=== PATIENT | female | born 1985 | race Caucasian/White ===

== ENCOUNTER 2018-04-18 10:57 | Emergency (ER) | payer OTHER ==
[2018-04-18 12:14] VITALS: BP 117/70
--- NOTE | 2018-04-18 13:02 | UC ---
UC General HPI - HPI Summary HPI Summary: 32 year old female with previous diagnosis of trigeminal neuralgia presents with 2-3 day history of intermittent, sharp, shooting right sided facial pain that lasts for seconds. States similar to her previous episodes except less severe. Treated successfully in past with low dose carbamazepine. Deneis fever, chills, rash, facial droop, ear pain/drainage, URI symptoms, headache, visual disturbances, speech difficulties, extremity weakness, numbness, or tingling. - History of Current Complaint Chief Complaint: UCGeneralIllness Stated Complaint: NERVE PROBLEM IN FACE Time Seen by Provider: 04/18/18 12:41 Hx Obtained From: Patient Hx Last Menstrual Period: 03/31/18 Onset/Duration: Sudden Onset Timing: Intermittent Episodes Lasting: - seconds Current Severity: None Pain Intensity: 4 - Allergy/Home Medications Allergies/Adverse Reactions: Allergies Allergy/AdvReac Type Severity Reaction Status Date / Time No Known Allergies Allergy Verified 04/18/18 12:14 PMH/Surg Hx/FS Hx/Imm Hx Previously Healthy: Yes Other Neurological History: Trigeminal neuralgia Other History Of: Negative For: HIV, Hepatitis B, Hepatitis C, Anticoagulant Therapy - Surgical History Surgical History: Yes Surgery Procedure, Year, and Place: CSECTION X 2 - Family History Family History: Noncontributory - Social History Occupation: Works From/At Home Lives: With Family Alcohol Use: Occasionally Alcohol Amount: few times a week Substance Use Type: None Smoking Status (MU): Never Smoked Tobacco - Immunization History Most Recent Influenza Vaccination: none Most Recent Tetanus Shot: 09/15/15 Most Recent Pneumonia Vaccination: none Review of Systems Constitutional: Negative Skin: Negative Eyes: Negative ENT: Negative Respiratory: Negative Cardiovascular: Negative Neurological: Other - See HPI Is Patient Immunocompromised?: No All Other Systems Reviewed And Are Negative: Yes Physical Exam Triage Information Reviewed: Yes Appearance: Well-Appearing, No Pain Distress, Well-Nourished Vital Signs: Initial Vital Signs Temp 97.9 F 04/18/18 12:10 Pulse 100 04/18/18 12:10 Resp 20 04/18/18 12:10 BP 117/70 04/18/18 12:10 Pulse Ox 100 04/18/18 12:10 Vital Signs Reviewed: Yes Eyes: Positive: Conjunctiva Clear. Negative: Discharge ENT: Positive: Hearing grossly normal, TMs normal, Uvula midline. Negative: Pharyngeal erythema, Nasal congestion, Nasal drainage, Tonsillar swelling, Tonsillar exudate, Sinus tenderness Neck: Positive: Supple, Nontender, No Lymphadenopathy Respiratory: Positive: Lungs clear, Normal breath sounds, No respiratory distress Cardiovascular: Positive: RRR, No Murmur Neurological: Positive: Alert, Other: - Cranial nerves II-XII grossly intact Skin Exam: Normal Course/Dx - Course Course Of Treatment: 32 year old female with previous history of trigeminal neuralgia presents with 2-3 days of brief, intermittent episodes sharp, shooting , right-sided facial pain. Exam unremarkable. Her history is consisent with reoccurence of her trigeminal neuralgia. She has been successfully treated in past with low dose carbamazepine therefore will start her on carbamazepine 100 mg BID. She is to follow up with her PCP in 7 days for re-evaluation. Warning symptoms reviewed. Verbalizes understanding and agrees with POC. - Differential Dx - Multi-Symptom Provider Diagnoses: Trigeminal neuralgia Discharge - Sign-Out/Discharge Documenting (check all that apply): Patient Departure All imaging exams completed and their final reports reviewed: No Studies - Discharge Plan Condition: Stable Disposition: HOME Prescriptions: Carbamazepine [Tegretol] 100 mg PO BID 14 Days #14 tablet Patient Education Materials: Trigeminal Neuralgia (ED) Referrals: Sagar Plaza MD [Primary Care Provider] - 7 Days Additional Instructions: With your history and symptoms I suspect that you are having a reoccurrence of your trigeminal neuralgia. Start carbamazepine 100 mg twice a day. Follow up with your primary care provider within 7 days for reevaluation. Seek immediate medical attention in the emergency room if you develop fever greater than 100.5 F, have worsening or persistent pain, facial droop, visual disturbances, difficulty speaking, numbness, tingling, or weakness of your arms or legs, or any worsening of symptoms. - Billing Disposition and Condition Condition: STABLE Disposition: Home
== END 2018-04-18 13:14 | disposition home or self-care (01) ==
LOC: UCEAST 10:57
DX: G50.0 Trigeminal neuralgia (principal)
CPT/HCPCS: 99211; G0463

== ENCOUNTER 2019-04-12 19:39 | Emergency (ER) | payer OTHER ==
--- NOTE | 2019-04-12 20:27 | UC ---
Respiratory Complaint HPI - HPI Summary HPI Summary: worsening cough and chest congestion over the week--chest feels tight and painfull with cough and deep breaths - History of Current Complaint Chief Complaint: UCRespiratory Stated Complaint: COUGH, CHEST CONGESTION Time Seen by Provider: 04/12/19 20:27 Hx Obtained From: Patient Hx Last Menstrual Period: 01/02/18 ?: No Onset/Duration: Gradual Onset, Lasting Weeks - 1, Still Present Timing: Constant Character: Cough: Nonproductive Aggravating Factors: Exertion, Deep Breaths Alleviating Factors: Nothing Associated Signs And Symptoms: Positive: Pleuritic Chest Pain, URI - Allergies/Home Medications Allergies/Adverse Reactions: Allergies Allergy/AdvReac Type Severity Reaction Status Date / Time No Known Allergies Allergy Verified 04/12/19 20:33 Home Medications: Home Medications guaiFENesin [Mucinex] 1 tab PO ONCE PRN 04/12/19 [History Confirmed 04/12/19] PMH/Surg Hx/FS Hx/Imm Hx Previously Healthy: Yes Other History Of: Negative For: HIV, Hepatitis B, Hepatitis C, Anticoagulant Therapy - Surgical History Surgical History: Yes Surgery Procedure, Year, and Place: x2 - Family History Known Family History: Positive: None, Hypertension Family History: Noncontributory - Social History Occupation: Works From/At Home Lives: With Family Alcohol Use: Weekly Alcohol Amount: few times a week Substance Use Type: None Smoking Status (MU): Never Smoked Tobacco - Immunization History Most Recent Influenza Vaccination: none Most Recent Tetanus Shot: 09/15/15 Most Recent Pneumonia Vaccination: none Review of Systems All Other Systems Reviewed And Are Negative: Yes Constitutional: Positive: Chills, Fatigue Skin: Positive: Negative Eyes: Positive: Negative Respiratory: Positive: Cough Cardiovascular: Positive: Negative Gastrointestinal: Positive: Negative Genitourinary: Positive: Negative Motor: Positive: Negative Neurovascular: Positive: Negative Musculoskeletal: Positive: Negative Neurological: Positive: Negative Psychological: Positive: Negative Is Patient Immunocompromised?: No Physical Exam Triage Information Reviewed: Yes Appearance: No Pain Distress, Well-Nourished, Ill-Appearing - miuld Vital Signs Reviewed: Yes Eye Exam: Normal Eyes: Positive: Conjunctiva Clear ENT Exam: Normal ENT: Positive: Normal ENT inspection, Hearing grossly normal, TMs normal, Uvula midline. Negative: Nasal congestion, Nasal drainage, Trismus, Muffled voice, Hoarse voice Dental Exam: Normal Neck exam: Normal Neck: Positive: Supple, Nontender, No Lymphadenopathy Respiratory Exam: Normal Respiratory: Positive: Chest non-tender, Lungs clear, Normal breath sounds, No respiratory distress, No accessory muscle use Cardiovascular Exam: Normal Cardiovascular: Positive: RRR, No Murmur, Pulses Normal, Brisk Capillary Refill Musculoskeletal Exam: Normal Musculoskeletal: Positive: Strength Intact, ROM Intact, No Edema Neurological Exam: Normal Neurological: Positive: Alert, Muscle Tone Normal Psychological Exam: Normal Skin Exam: Normal Respiratory Course/Dx - Course Course Of Treatment: patient feels better after neb less chest tightness, increase air movement--- will rx zithromax and albuterol increase fluids, tylenol, ibuprofen for pain, follow with pcp prn - Differential Dx/Diagnosis Provider Diagnosis: Acute bronchitis Discharge ED - Sign-Out/Discharge Documenting (check all that apply): Patient Departure All imaging exams completed and their final reports reviewed: No Studies - Discharge Plan Condition: Stable Disposition: HOME Prescriptions: Albuterol HFA INHALER* [Ventolin HFA Inhaler*] 2 puff INH Q4H PRN #1 mdi PRN Reason: cough/chest congestion Azithromycin TAB* [Zithromax TAB (Z-BENJAMIN) 250 mg #6 tabs] 250 mg PO DAILY #4 tab Patient Education Materials: Acute Bronchitis (ED), How to Use a Metered-Dose Inhaler and a Spacer (ED) Referrals: Sagar Plaza MD [Primary Care Provider] - If Needed - Billing Disposition and Condition Condition: STABLE Disposition: Home - Attestation Statements Provider Attestation: Per institutional requirements, I have reviewed the chart, however, I was not consulted specifically or made aware of this patient by the midlevel provider. I did not personally evaluate, interact with , or disposition this patient.
[2019-04-12 20:33] VITALS: BP 108/72
[2019-04-12] MEDS ORDERED: Azithromycin TAB* 250 MG PO ONE (20:44)
[2019-04-12] MEDS ORDERED: Albuterol/Ipratropium NEB.SOL* Albuterol 2.5 MG/Ipratropium 0.5 MG 3 ML INH ONE (20:44)
[2019-04-12] MEDS ORDERED: Albuterol HFA INHALER* 8 gm MDI INH ONE (21:13)
== END 2019-04-12 21:39 | disposition home or self-care (01) ==
LOC: UCEAST 19:39
DX: J20.9 Acute bronchitis, unspecified (principal); R07.9 Chest pain, unspecified; R09.89 Other specified symptoms and signs involving the circulatory and respiratory systems; R53.83 Other fatigue; R68.83 Chills (without fever)
CPT/HCPCS: 99213; A9270-GY; G0463